=== PATIENT | female | born 1980 | race Two or more races ===

== ENCOUNTER 2020-04-08 10:50 | Outpatient (CLI) | payer OTHER | END 2020-04-08 15:00 | disposition home or self-care (01) | LOC: PPH VACUNA 10:50 | DX: Z23 Encounter for immunization (principal) ==

== ENCOUNTER 2023-02-15 10:28 | Inpatient (IN) | payer OTHER ==
[~2023-02-15] VITALS: Ht 165.1 cm; Wt 85.3 kg
[2023-02-26] MEDS ORDERED: PRENATAL CAPLE1 EAC1 PO (15:06)
[2023-02-27 11:26] LABS: ABG PH 7.252 (7.35-7.45); ABG PO2 39.9 mmHg (80-100); ABG pCO2 39.2 mmHg (35-45); BASE EXCESS -9.7 mmol/l; BICARBONATE 16.9 mmol/l (23-25); SaO2 63.2 %; Tco2 18.1 mmol/l; o2 21 %
[2023-02-27 11:58] LABS: HEMATOCRIT 28.9 % (36.0-45.00); HEMOGLOBIN 9.5 g/dL (12.0-15.00); MEAN CELL VOLUME 79.1 fL (80.00-100.00); MEAN CORPUSCULAR HGB CONC 32.9 g/dl (32.0-36.0); RED BLOOD COUNT 3.65 M/uL (4.00-6.00); RED CELL DISTRIBUTION WIDTH 15.5 % (11.5-14.5)
[2023-02-27 12:37] LABS: PLATELET COUNT 113 K/uL (150-450)
== END 2023-03-02 13:29 | disposition home or self-care (01) | DRG 807 ==
LOC: OB/GYN 02-27 00:07 → LDR 02-27 00:07 → OB/GYN 02-27 10:25
PROVIDERS: Obstetrics & Gynecology Gynecology; ADMIT Obstetrics & Gynecology Maternal & Fetal Medicine; ATTEND Obstetrics & Gynecology Maternal & Fetal Medicine
PROC: 10D07Z6 Extraction of Products of Conception, Vacuum, Via Natural or Artificial Opening (ICD-10-PCS; principal; 2023-02-27)
PROC: 0UQG7ZZ Repair Vagina, Via Natural or Artificial Opening (ICD-10-PCS; 2023-02-27)
PROC: 0UQMXZZ Repair Vulva, External Approach (ICD-10-PCS; 2023-02-27)
PROC: 4A1HXCZ Monitoring of Products of Conception, Cardiac Rate, External Approach (ICD-10-PCS; 2023-02-27)
DX: O71.4 Obstetric high vaginal laceration alone (principal); Z37.0 Single live birth; O71.82 Other specified trauma to perineum and vulva; O66.0 Obstructed labor due to shoulder dystocia; Z3A.39 39 weeks gestation of pregnancy; Z20.822 Contact with and (suspected) exposure to COVID-19

== ENCOUNTER 2023-02-22 09:11 | Outpatient (CLI) | payer OTHER | END 2023-02-22 10:01 | disposition home or self-care (01) | LOC: NST 09:11 | PROVIDERS: ATTEND Obstetrics & Gynecology Maternal & Fetal Medicine | DX: Z34.83 Encounter for supervision of other normal pregnancy, third trimester (principal) ==

== ENCOUNTER 2023-02-26 14:54 | Outpatient (CLI) | payer OTHER ==
[~2023-02-26] VITALS: Ht 165.1 cm; Wt 85.3 kg
[2023-02-26] MEDS ORDERED: PRENATAL CAPLE1 EAC1 PO (15:06)
[2023-02-26 15:23] LABS: HEMATOCRIT 32.4 % (36.0-45.00); HEMOGLOBIN 10.5 g/dL (12.0-15.00); MEAN CELL VOLUME 79.6 fL (80.00-100.00); MEAN CORPUSCULAR HEMOGLOBIN 25.7 pg (27.00-32.0); MEAN CORPUSCULAR HGB CONC 32.3 g/dl (32.0-36.0); PLATELET COUNT 137 K/uL (150-450); RED BLOOD COUNT 4.08 M/uL (4.00-6.00); RED CELL DISTRIBUTION WIDTH 15.1 % (11.5-14.5)
== END 2023-02-27 00:12 | disposition still patient (30) ==
LOC: OBS/DEL 14:54
PROVIDERS: Obstetrics & Gynecology Gynecology; ATTEND Obstetrics & Gynecology
DX: O26.893 Other specified pregnancy related conditions, third trimester (principal); Z3A.39 39 weeks gestation of pregnancy